=== PATIENT | female | born 1965 | race Caucasian/White ===

== ENCOUNTER 2017-01-14 21:01 | Inpatient (IN) | payer OTHER ==
[~2017-01-14] VITALS: Ht 160 cm; Wt 108.5 kg
[~2017-01-14 21:01] MED LIST: 1-ME1LIQ PO; CIPR250T2 PO; IOHEXOL 350 MG/ML 10 ML VIAL (for RAD DIAG) IVCONTRAST ONE; LISI2.5T55 PO; METO50TA PO; SERT-132 PO
[2017-01-14 21:06] VITALS: BP 199/85; PULSE 87; RESP 24; TEMP 98.1; O2SAT 94
[2017-01-14] MEDS ORDERED: MORPHINE SULFATE 4 MG/ML INJ IV PUSH ONE ×2 (21:15→23:30)
[2017-01-14] MEDS ORDERED: SODIUM CHLORIDE 0.9% FLUSH 10 ML FLUSH IVF PRN (21:15)
[2017-01-14] MEDS ORDERED: SODIUM CHLOR 0.9% 1000 ML INJ 1,000 ML IV SCH (21:15)
[2017-01-14] MEDS ORDERED: NITROGLYCERIN 2% OINT 1 GM PACKET TOPICAL ONE (21:15)
[2017-01-14] MEDS ORDERED: ONDANSETRON HCL 4 MG/2 ML VIAL IV PUSH ONE (21:15)
[2017-01-14 21:40] VITALS: BP 178/76; PULSE 80; O2SAT 94
--- NOTE | 2017-01-14 21:44 | RADRPT ---
EXAM DATE/TIME: 01/14/2017 21:22 [facility] COMPARISON: No previous studies available for comparison. INDICATIONS : Chest pain. MEDICAL HISTORY : Hypertension. SURGICAL HISTORY : Appendectomy. Tonsillectomy. ENCOUNTER: Initial ACUITY: 1 day PAIN SCORE: 7/10 LOCATION: Bilateral chest FINDINGS: A single view of the chest demonstrates the lungs to be symmetrically aerated without evidence of mas s, infiltrate or effusion. The cardiomediastinal contours are unremarkable. Osseous structures are intact. CONCLUSION: No evidence of acute cardiopulmonary disease. Elia Wyatt MD on January 14, 2017 at 21:43 Board Certified Radiologist. This report was verified electronically.
[2017-01-14 22:08] LABS: BASOPHIL # 0.2 TH/MM3 (0-0.2); BASOPHIL % 1.2 % (0.0-2.0); EOSINOPHIL # 0.2 TH/MM3 (0-0.4); EOSINOPHIL % 1.2 % (0.0-4.0); HEMATOCRIT 46.3 % (35.0-46.0); HEMO FLAGS DIFF FINAL; LYMPH % 23.9 % (9.0-44.0); LYMPHOCYTE # 3.1 TH/MM3 (1.0-4.8); MEAN CELL VOLUME 88.4 FL (80.0-100.0); MEAN CORPUSCULAR HGB CONC 33.9 % (32.0-36.0); MONO % 4.4 % (0.0-8.0); NEUT % 69.3 % (16.0-70.0); PLATELET COUNT 304 TH/MM3 (150-450); RED BLOOD COUNT 5.24 MIL/MM3 (4.00-5.30); RED CELL DISTRIBUTION WIDTH 13.8 % (11.6-17.2)
[2017-01-14 22:19] LABS: APTT (PATIENT) 25.7 SEC (24.3-30.1); INTERNATIONAL NORMALIZED RATIO 0.9 RATIO
[2017-01-14 22:31] VITALS: BP 167/78; PULSE 71; RESP 20; O2SAT 96
[2017-01-14 23:02] LABS: ALT (GPT) 30 U/L (10-53); ANION GAP 7 MEQ/L (5-15); AST (GOT) 23 U/L (15-37); BICARBONATE 27.2 MEQ/L (21.0-32.0); BLOOD UREA NITROGEN 19 MG/DL (7-18); CHLORIDE 106 MEQ/L (98-107); GLOMERULAR FILTRATION RATE 78 ML/MIN (>89); MAGNESIUM 2.2 MG/DL (1.5-2.5); SODIUM (NA) 140 MEQ/L (136-145)
[2017-01-14 23:20] LABS: ALKALINE PHOSPHATASE 94 U/L (45-117); TOTAL BILIRUBIN ADULT 0.3 MG/DL (0.2-1.0)
[2017-01-14 23:27] LABS: CREATINE KINASE 94 U/L (26-192)
[2017-01-14 23:48] VITALS: BP_SYST 129; BP_SYST 138; BP_DIAS 59; BP_DIAS 63; PULSE 72; RESP 20; O2SAT 97
[2017-01-15] VITALS (21 sets, daily range): BP systolic 123–159; BP diastolic 65–78; PULSE 60–74; RESP 16–22; TEMP 97.4–98.7; O2SAT 95–98
--- NOTE | 2017-01-15 00:34 | RADRPT ---
EXAM DATE/TIME: 01/15/2017 00:02 [facility] COMPARISON: No previous studies available for comparison. INDICATIONS : Chest pain with shortness of breath today. IV CONTRAST: 100 cc Omnipaque 350 (iohexol) IV RADIATION DOSE: 17.03 CTDIvol (mGy) MEDICAL HISTORY : Cardiovascular disease. Rheumatoid arthritis. Gastroesophageal reflux disease.Hypertension. Congestiv e heart failure. Fibromyalgia. SURGICAL HISTORY : Appendectomy. Hysterectomy.Cholecystectomy.Cardiac catherization. ENCOUNTER: Initial ACUITY: 1 day PAIN SCALE: 8/10 LOCATION: chest TECHNIQUE: Volumetric scanning was performed using a multi-row detector CT scanner. The data was post processed with a variety of visualization algorithms including full volume maximum intensity projection, multi -planar sliding thin slab reformation, curved planar reformation, and surface rendering techniques. Using automated exposure control and adjustment of the mA and/or kV according to patient size, radiat ion dose was kept as low as reasonably achievable to obtain optimal diagnostic quality images. DICOM format image data is available electronically for review and comparison. FINDINGS: LUNGS: There is no consolidation or pneumothorax. No concerning pulmonary nodule is visualized. No pleural fluid is present. MEDIASTINUM: No abnormally enlarged lymph nodes by CT criteria. No axillary or hilar abnormalities are identified. ABDOMEN: The liver and spleen are free of focal defects. The gallbladder and pancreas demonstrate no abnormali ty. The adrenal glands are normal. The kidneys demonstrate no evidence of solid renal mass or hydrone phrosis. No free fluid or abdominal masses are identified. No para-aortic adenopathy is seen. PELVIS: No evidence of free fluid or pelvic mass. No abnormally enlarged inguinal or retroperitoneal lymph no pb are present. The bladder is unremarkable. THORACIC AORTA: The thoracic aortic root is normal with normal branching of the great vessels. There is no evidence of aneurysm or dissection. ABDOMINAL AORTA: The aorta is normal in caliber without aneurysm or dissection. The renal arteries are patent bilater ally. The proximal celiac and superior mesenteric arteries are patent and normal in diameter. PELVIC VESSELS: The internal iliac and external iliac vessels are patent without aneurysm or stenosis. CONCLUSION: Mild atherosclerotic change in the thoracic and abdominal aorta. No dissection or aneurysm. Calcified granuloma left upper lobe and calcified left hilar lymph nodes. No acute findings. Simon Clarke MD on January 15, 2017 at 0:25 Board Certified Radiologist. This report was verified electronically.
[2017-01-15] MEDS ORDERED: HEPARIN-D5W 25,000 U/250 ML 250 ML IV PRN (01:30)
[2017-01-15] MEDS ORDERED: SODIUM CHLORIDE 0.9% FLUSH 10 ML FLUSH IV FLUSH PRN (01:30)
[2017-01-15] MEDS ORDERED: NALOXONE HCL 0.4 MG/ML AMP IV PUSH PRN ×2 (01:30→09:15)
[2017-01-15] MEDS ORDERED: SODIUM CHLORIDE 0.9% FLUSH 10 ML FLUSH IVF PRN (01:30)
[2017-01-15] MEDS ORDERED: HEPARIN SODIUM - IV 10,000 UNITS/10 ML VIAL IV PUSH ONE (01:30)
[2017-01-15] MEDS ORDERED: NITROGLYCERIN 0.4 MG SL 25 TABS/BTL SL PRN (01:30)
[2017-01-15] MEDS: MORPHINE SULFATE 4 MG/ML INJ IV PUSH PRN ×2 (02:48→07:28)
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
[2017-01-15 04:40] LABS: CREATINE KINASE 55 U/L (26-192)
[2017-01-15] MEDS ORDERED: HEPARIN SODIUM - IV 10,000 UNITS/10 ML VIAL IV PUSH PRN ×2 (07:30)
--- NOTE | 2017-01-15 08:12 | MB ---
cc: NAHUM TOVARN DATE OF CONSULTATION 01/15/2017 REASON FOR CONSULTATION "Unstable angina" HISTORY OF PRESENT ILLNESS History is obtained from the patient who is a fair historian. The patient is a 51-year-old white female with a history of hypertension, hyperlipidemia, tobacco abuse, fibromyalgia, "congestive heart failure" four years ago although at that time she only had pedal edema, history of "leaky valve" who presented to the hospital yesterday with chest pain. Yesterday morning while doing minimal activity, she developed fairly severe substernal chest discomfort with some radiation directly through to her back. Associated symptoms included shortness of breath without nausea or diaphoresis. The chest pain has persisted in a constant fashion until today (24 hours later). Because the chest discomfort intensity became severe around 07:00 p.m. last night, she finally came to the emergency room. The patient denies pleurisy, dizziness, syncope, near-syncope, palpitations, change in chronic intermittent pedal edema, paroxysmal nocturnal dyspnea. For the most part, she is sedentary. At the present time, she continues to have substernal chest discomfort although much improved compared to yesterday. PAST MEDICAL HISTORY As above. No other details available. PAST SURGICAL HISTORY 1. Hysterectomy 2. Tonsillectomy 3. Appendectomy MEDICATIONS AT HOME None ALLERGIES PENICILLIN FAMILY HISTORY The patient's father from myocardial infarction at age 48. The patient's mother is status post valve replacement. SOCIAL HISTORY The patient smokes about A half a pack of cigarettes per day. She denies alcohol or drug abuse. REVIEW OF SYSTEMS As in the history of present illness otherwise negative or noncontributory. She also denies headache, visual changes, unilateral weakness or numbness, abdominal pain, melena, dyspepsia, bright red blood per rectum. PHYSICAL EXAMINATION Her blood pressure 129/59 with a pulse of 72, respirations 20. GENERAL: She is a well-developed, well-nourished white female in no acute distress. HEENT: On examination, jugular venous pressure is hard to assess, it appears to be normal. Carotid pulses are 2+ bilaterally and without bruits. CHEST: Examination of the chest reveals clear lung woodruff. CARDIAC: On cardiac examination, she has a regular rhythm and rate with a grade 1/6 systolic murmur heard at the left upper sternal border. No gallop is audible. ABDOMEN: On abdominal examination, se has a soft, nontender abdomen. Bowel sounds are present. There is no definite hepatosplenomegaly. EXTREMITIES: Examination of extremities reveals no clubbing, cyanosis or edema. EKG shows sinus rhythm, nonspecific T-wave abnormality. Chest x-ray shows no acute disease. LABORATORY DATA Includes WBC 13.0, hemoglobin 15.7, platelets 304. Potassium 4.0, negative cardiac enzymes, BUN 19, creatinine 0.78, glucose 121. IMPRESSION Atypical symptoms for myocardial ischemia in this 51-year-old white female with a history of fibromyalgia, hypertension, hyperlipidemia, questionable congestive heart failure four years ago, "leaky valve." Despite constant chest discomfort for the past 24 hours, cardiac enzymes are negative for myocardial infarction. EKG shows nonspecific changes. Clinical suspicion for pulmonary embolism or aortic dissection is low. The patient does have risk factors for coronary disease including hypertension, hyperlipidemia, family history, tobacco abuse. The extent of her valvular disease is not entirely clear. She has never been told she needed valve surgery. RECOMMENDATIONS 1. Await her 2-D echo. 2. Check a Lexiscan nuclear stress test. Unless severe or large amount of ischemia are demonstrated, would recommend medical therapy. 3. We will follow up as needed for any abnormal findings on nuclear stress testing. MD GINETTE Vargas/NATASHA /7:44 AM /7:52 AM DARRON
--- NOTE | 2017-01-15 08:37 | RADRPT ---
EXAM DATE/TIME: 01/15/2017 07:26 [facility] COMPARISON: No previous studies available for comparison. INDICATIONS : Abdominal pain. MEDICAL HISTORY : Congestive heart failure. Angina. Hypertension. Arthritis. Fibromyalgia. Depression. SURGICAL HISTORY : Tonsillectomy. Appendectomy. Cholecystectomy. Cardiac cath. Hysterectomy. Right knee surgery. ENCOUNTER: Initial ACUITY: 1 day PAIN SCORE: 2/10 LOCATION: Bilateral upper quadrant MEASUREMENTS: LIVER: 18.4 cm length COMMON DUCT: 11 mm RIGHT KIDNEY: 11.7 x 4.7 x 5.7 cm LEFT KIDNEY: 11.6 x 6.4 x 6.8 cm SPLEEN: 10.0 cm length AORTA: 2.8cm maximal FINDINGS: LIVER: Mildly echogenic without ductal dilatation. COMMON DUCT: No intraluminal mass or stone visualized. GALLBLADDER: Sludge the obvious stone. PANCREAS: Limited by bowel gas. RIGHT KIDNEY: No hydronephrosis, stone or mass. LEFT KIDNEY: No hydronephrosis, stone or mass. SPLEEN: No focal lesion. AORTA: Non aneurysmal. IVC: Within normal limits. CONCLUSION: Mildly echogenic liver without ductal dilatation. Sludge gallbladder without obvious stones. Giovanni Nugent MD FACR on January 15, 2017 at 8:35 Board Certified Radiologist. This report was verified electronically.
[2017-01-15] MEDS ORDERED: SODIUM CHLORIDE 0.9% FLUSH 10 ML FLUSH IV FLUSH SCH (09:00)
[2017-01-15] MEDS: SODIUM CHLORIDE 0.9% FLUSH 10 ML FLUSH IV FLUSH SCH ×2 (09:00→20:53)
--- NOTE | 2017-01-15 09:01 | HHI.PR ---
Subjective Remarks Patient states that she has right arm shoulder pain radiating towards her right scapula and mid chest area. She denies any shortness of breath nausea vomiting. She states this happened after she ate toast yesterday morning. Objective Vitals Vital Signs Date Time Temp Pulse Resp B/P (MAP) Pulse Ox O2 Delivery O2 Flow Rate FiO2 01/15/17 07:18 61 01/15/17 07:18 97.4 65 19 123/72 (89) 95 01/15/17 06:00 60 01/15/17 05:00 64 01/15/17 04:00 62 01/15/17 03:45 97.5 69 16 128/65 (86) 95 01/15/17 01:49 97 Nasal Cannula 2.00 01/14/17 23:48 72 20 129/59 (82) 97 Room Air 138/63 (88) 01/14/17 22:37 Room Air 01/14/17 22:31 71 20 167/78 (107) 96 Room Air 01/14/17 21:40 80 178/76 (110) 94 Room Air 01/14/17 21:18 Room Air 01/14/17 21:18 Room Air 01/14/17 21:06 98.1 87 24 199/85 (123) 94 I/O 01/14/17 01/14/17 01/14/17 01/15/17 01/15/17 01/15/17 07:00 15:00 23:00 07:00 15:00 23:00 Intake Total 1000 ml Output Total 50 ml Balance 1000 ml -50 ml Intake IV Total 1000 ml Output Urine Total 50 ml Result Diagram: 01/14/17213201/14/172132 Imaging Last Impressions Abdomen Ultrasound 01/15/17 0000 Signed Impressions: Service Date/Time: Sunday, January 15, 2017 07:26 - CONCLUSION: Mildly echogenic liver without ductal dilatation. Sludge gallbladder without obvious stones. Giovanni Nugent MD FACR Chest X-Ray 01/14/172112 Signed Impressions: Service Date/Time: December 21:22 - CONCLUSION: No evidence of acute cardiopulmonary disease. Elia Wyatt MD Aorta CTA 01/14/17 0000 Signed Impressions: Service Date/Time: Sunday, January 15, 2017 00:02 - CONCLUSION: Mild atherosclerotic change in the thoracic and abdominal aorta. No dissection or aneurysm. Calcified granuloma left upper lobe and calcified left hilar lymph nodes. No acute findings. Simon Clarke MD Objective Remarks GENERAL: This is a well-nourished, well-developed patient, in no apparent distress. CARDIOVASCULAR: Regular rate and rhythm w RESPIRATORY: Clear to auscultation. Breath sounds equal bilaterally. No wheezes , rales, or rhonchi. GASTROINTESTINAL: Abdomen soft, minimal epigastric tenderness with no rebound or guarding, nondistended. Normal active bowel sounds MUSCULOSKELETAL: Extremities without clubbing, cyanosis, or edema. NEURO: Alert & Oriented x4 to person, place, time, situation. Moves all ext x4 A/P Assessment and Plan 51-year-old white female Chest pain with a history of leaky valve" in the past - cardiac enzymes are negative. Patient also has some atypical symptoms related to oral food intake and ultrasound of the abdomen show gallbladder sludge. At this time cardiology has been consulted and recommended further workup with 2-D echo and nuclear stress test. Hepatic function tests are within normal limits. Hypertension, essential -patient is currently taking any medications at home. We'll continue monitor blood pressure trends here. Start IV Lasix when necessary. Overnight blood pressure has improved. DVT prophylaxis - Lovenox. Charmaine Martinez MD Jan 15, 2017 09:01
[2017-01-15] MEDS ORDERED: ENALAPRILAT 1.25 MG/ML VIAL IV PUSH PRN (09:15)
[2017-01-15] MEDS ORDERED: ACETAMINOPHEN 325 MG TAB PO PRN (09:15)
[2017-01-15] MEDS ORDERED: ACETAMINOPHEN/HYDROcodone 325 MG/5 MG TAB PO PRN (09:15)
[2017-01-15] MEDS ORDERED: ALUMINUM/MAGNESIUM/SIMETH 30 ML CUP PO PRN (09:15)
[2017-01-15] MEDS: PANTOPRAZOLE SOD 40 MG DELAYED RELEASE TAB PO SCH (10:00)
--- NOTE | 2017-01-15 10:15 | EKG ---
Date Performed: 01/15/2017 Time Performed: 06:14:22 PTAGE: 51 years EKG: Sinus rhythm Anterolateral T wave changes are nonspecific Borderline ECG PREVIOUS TRACING : 01/14/2017 21.10 Compared to prior tracing no significant change DOCTOR: Juan R Reyna Interpretating Date/Time 01/15/2017 10:12:10
--- NOTE | 2017-01-15 10:17 | EKG ---
Date Performed: 01/14/2017 Time Performed: 21:10:12 PTAGE: 51 years EKG: Sinus rhythm NONSPECIFIC ST & T-WAVE ABNORMALITY BORDERLINE ECG NO PREVIOUS TRACING DOCTOR: Juan R Reyna Interpretating Date/Time 01/15/2017 10:12:46
[2017-01-15] MEDS ORDERED: REGADENOSON INJ 0.4 MG/5 ML SYR ONE (11:00)
--- NOTE | 2017-01-15 12:31 | ECHRPT ---
Indication: CHF CONCLUSIONS Normal left ventricular size. Wall thickness is normal. The left ventricular systolic function is hy perdynamic with an estimated ejection fraction in the range of 65-70%. Mitral annular calcification is present. Mild mitral valve regurgitation. There is mild tricuspid valve regurgitation. The estimated pulmonary arterial pressure is 26 mmHg. BP: 129 / 59 HR: 72 Rhythm: MEASUREMENTS (Male / Female) Normal Values Technical Quality: 2D ECHO LV Diastolic Diameter PLAX 4.0 cm 4.2 - 5.9 / 3.9 - 5.3 cm LV Systolic Diameter PLAX 3.2 cm IVS Diastolic Thickness 1.2 cm 0.6 - 1.0 / 0.6 - 0.9 cm LVPW Diastolic Thickness 0.7 cm 0.6 - 1.0 / 0.6 - 0.9 cm LV Relative Wall Thickness 0.5 RV Internal Dim ED PLAX 1.8 cm LA Systolic Diameter LX 3.5 cm 3.0 - 4.0 / 2.7 - 3.8 cm M-MODE Aortic Root Diameter MM 3.2 cm AV Cusp Separation MM 1.9 cm DOPPLER Mitral E Point Velocity 90.8 cm/s Mitral A Point Velocity 67.1 cm/s Mitral E to A Ratio 1.4 TR Peak Velocity 229.3 cm/s TR Peak Gradient 21.0 mmHg FINDINGS LEFT VENTRICLE Normal left ventricular size. Wall thickness is normal. The left ventricular systolic function is hy perdynamic with an estimated ejection fraction in the range of 65-70%. RIGHT VENTRICLE Normal right ventricular size and systolic function. LEFT ATRIUM The left atrial size is normal. RIGHT ATRIUM The right atrial size is normal. ATRIAL SEPTUM Normal atrial septal thickness without atrial level shunting by limited color doppler interrogation. AORTA The aortic root and proximal ascending aorta are normal in size on limited imaging. MITRAL VALVE Mitral annular calcification is present. Mild mitral valve regurgitation. AORTIC VALVE Trileaflet aortic valve. No aortic valve stenosis or regurgitation. TRICUSPID VALVE There is mild tricuspid valve regurgitation. The estimated pulmonary arterial pressure is 26 mmHg. PULMONARY VALVE The pulmonary valve is not well visualized. VESSELS The inferior vena cava is normal in size. PERICARDIUM No pericardial effusion. Chucho Thao MD (Electronically Signed) Final Date:15 January 2017 12:30
--- NOTE | 2017-01-15 12:44 | RADRPT ---
EXAM DATE/TIME: 01/15/2017 10:20 [facility] COMPARISON: No previous studies available for comparison. INDICATIONS : Chest pain for 2 days. Angina. Congestive heart failure. DOSE: 31.2 mCi Tc99m Myoview at stress. 10.1 mCi Tc99m Myoview at rest. 0.4 mg Lexiscan STRESS SYMPTOMS: Chest pain and dyspnea. EJECTION FRACTION: 61% MEDICAL HISTORY : Hypertension. SURGICAL HISTORY : Hysterectomy. Cholecystectomy. ENCOUNTER: Initial ACUITY: 2 days PAIN SCALE: 3/10 LOCATION: Midsternal chest TECHNIQUE: The patient underwent pharmacologic stress with infusion of prescribed dose. Continuous ECG tracing was monitored during stress. Gated SPECT imaging was performed after stress and conventional SPECT i maging was performed at rest. The examination was performed on a SPECT/CT scanner, both attenuation and non-corrected datasets were reviewed. FINDINGS: DISTRIBUTION: The maximum perfused segment at stress is in the anterior lateral wall followed by the inferior wall. PERFUSION STUDY: The pattern of perfusion at stress is within normal limits. GATED STUDY: There is intact wall motion and thickening without hypokinetic or dyskinetic segments. CONCLUSION: Negative for stress-induced ischemia. Ejection fraction 61%. RISK CATEGORY: Low (<1% Annual Mortality Rate) Giovanni Nugent MD FACR on January 15, 2017 at 12:39 Board Certified Radiologist. This report was verified electronically.
[2017-01-15] MEDS: ACETAMINOPHEN/HYDROcodone 325 MG/7.5 MG TAB PO PRN ×2 (13:08→20:51)
[2017-01-15 14:13] LABS: APTT (PATIENT) 29.6 SEC (24.3-30.1)
[2017-01-15 14:36] LABS: CREATINE KINASE 61 U/L (26-192)
[2017-01-15] MEDS ORDERED: AMLO10TA2 PO (23:17)
[2017-01-16] VITALS (17 sets, daily range): BP systolic 122–160; BP diastolic 65–81; PULSE 55–62; RESP 20–22; TEMP 97.7–98.3; O2SAT 92–96
[2017-01-16] MEDS: ACETAMINOPHEN/HYDROcodone 325 MG/7.5 MG TAB PO PRN ×2 (01:03→09:09)
[2017-01-16 06:11] LABS: AUTOMATED NEUTROPHIL # 4.8 TH/MM3 (1.8-7.7); BASOPHIL # 0.1 TH/MM3 (0-0.2); BASOPHIL % 0.6 % (0.0-2.0); EOSINOPHIL # 0.2 TH/MM3 (0-0.4); EOSINOPHIL % 2.5 % (0.0-4.0); HEMATOCRIT 39.8 % (35.0-46.0); HEMO FLAGS DIFF FINAL; LYMPH % 35.4 % (9.0-44.0); LYMPHOCYTE # 3.1 TH/MM3 (1.0-4.8); MEAN CELL VOLUME 88.8 FL (80.0-100.0); MEAN CORPUSCULAR HEMOGLOBIN 29.8 PG (27.0-34.0); MEAN CORPUSCULAR HGB CONC 33.6 % (32.0-36.0); MONO % 5.8 % (0.0-8.0); NEUT % 55.7 % (16.0-70.0); PLATELET COUNT 264 TH/MM3 (150-450); RED BLOOD COUNT 4.48 MIL/MM3 (4.00-5.30); RED CELL DISTRIBUTION WIDTH 13.8 % (11.6-17.2); WHITE BLOOD COUNT 8.7 TH/MM3 (4.0-11.0)
[2017-01-16 06:47] LABS: BICARBONATE 28.1 MEQ/L (21.0-32.0); POTASSIUM 3.9 MEQ/L (3.5-5.1)
[2017-01-16] MEDS ORDERED: HYDR-3516 PO (08:40)
[2017-01-16] MEDS ORDERED: PANT40TA3 PO (08:40)
[2017-01-16] MEDS: PANTOPRAZOLE SOD 40 MG DELAYED RELEASE TAB PO SCH (09:08)
[2017-01-16] MEDS: SODIUM CHLORIDE 0.9% FLUSH 10 ML FLUSH IV FLUSH SCH (09:09)
--- NOTE | 2017-01-16 11:45 | HHI.DCPOC ---
Discharge Care Plan Diagnosis: (1) Chest pain Goals to Promote Your Health * To prevent worsening of your condition and complications * To maintain your health at the optimal level Directions to Meet Your Goals Take your medications as prescribed Follow your dietary instruction Follow activity as directed Keep your appointments as scheduled Take your immunizations and boosters as scheduled If your symptoms worsen call your PCP, if no PCP go to Urgent Care Center or Emergency Room Smoking is Dangerous to Your Health. Avoid second hand smoke Call the 24-hour hour crisis hotline for domestic abuse at Kuldip Cabrera MD Jan 16, 2017 11:45
--- NOTE | 2017-01-16 11:46 | HHI.PR ---
Subjective Remarks Patient denies chest pain or shortness of breath. She recalls the pain seems to be associated with food. Nuclear stress tests unremarkable. Objective Vitals Vital Signs Date Time Temp Pulse Resp B/P (MAP) Pulse Ox O2 Delivery O2 Flow Rate FiO2 01/16/17 10:56 92 01/16/17 07:30 Room Air 2.00 01/16/17 07:30 98.2 58 21 136/65 (88) 94 01/16/17 07:00 57 01/16/17 06:00 60 01/16/17 05:00 57 01/16/17 04:17 Nasal Cannula 2.00 01/16/17 04:17 97.7 55 22 122/67 (85) 95 01/16/17 04:00 55 01/16/17 03:00 57 01/16/17 02:00 61 01/16/17 01:00 62 01/16/17 00:00 Nasal Cannula 2.00 01/16/17 00:00 61 01/16/17 00:00 98.0 61 22 160/81 (107) 96 01/15/17 23:00 65 01/15/17 22:00 69 01/15/17 21:00 67 01/15/17 20:02 98 Nasal Cannula 2.00 01/15/17 20:00 98.4 70 22 159/78 (105) 96 01/15/17 20:00 Nasal Cannula 2.00 01/15/17 20:00 70 01/15/17 18:27 69 01/15/17 17:45 74 01/15/17 16:32 65 01/15/17 15:53 98.7 69 18 142/74 (96) 95 01/15/17 15:16 60 01/15/17 14:09 73 01/15/17 13:08 97.6 69 18 142/74 (96) 95 01/15/17 13:00 72 I/O 01/15/17 01/15/17 01/15/17 01/16/17 01/16/17 01/16/17 07:00 15:00 23:00 07:00 15:00 23:00 Intake Total 138 ml 480 ml 480 ml Output Total 50 ml Balance -50 ml 138 ml 480 ml 480 ml Intake Oral 480 ml 480 ml IV Total 138 ml Output Urine Total 50 ml # Voids 3 3 # Bowel Movements 0 Result Diagram: 01/16/17 0527 01/16/17 0527 Imaging Last Impressions Myocardial Perfusion Scan Nuc Med 01/15/17 0000 Signed Impressions: Service Date/Time: Sunday, January 15, 2017 10:20 - CONCLUSION: Negative for stress-induced ischemia. Ejection fraction 61%%. RISK CATEGORY: Low (<1% % Annual Mortality Rate) Giovanni Nugent MD FACR Abdomen Ultrasound 01/15/17 0000 Signed Impressions: Service Date/Time: Sunday, January 15, 2017 07:26 - CONCLUSION: Mildly echogenic liver without ductal dilatation. Sludge gallbladder without obvious stones. Giovanni Nugent MD FACR Chest X-Ray 01/14/172112 Signed Impressions: Service Date/Time: December 21:22 - CONCLUSION: No evidence of acute cardiopulmonary disease. Elia Wyatt MD Aorta CTA 01/14/17 0000 Signed Impressions: Service Date/Time: Sunday, January 15, 2017 00:02 - CONCLUSION: Mild atherosclerotic change in the thoracic and abdominal aorta. No dissection or aneurysm. Calcified granuloma left upper lobe and calcified left hilar lymph nodes. No acute findings. Simon Clarke MD Objective Remarks GENERAL: This is a well-nourished, well-developed patient, in no apparent distress. CARDIOVASCULAR: Normal rate and regular rhythm without murmurs, gallops, or rubs. RESPIRATORY: Good respiratory efforts. Breath sounds equal and clear to auscultation bilaterally. GASTROINTESTINAL: Abdomen soft, non-tender, non-distended. Normal active bowel sounds MUSCULOSKELETAL: Extremities without cyanosis, or edema. NEURO: Alert & Oriented x4 to person, place, time, situation. Moves all ext x4 PSYCH: Appropriate mood and affect. A/P Assessment and Plan 51-year-old white female who presented to the hospital with chest pain. The patient reported a history of leaky valve and heart failure. She was evaluated by cardiology and underwent nuclear stress test which was unremarkable. 2-D echocardiogram showed preserved LVEF, mild tricuspid and mitral regurgitation. Patient chest pain related to food intake. She was started on Protonix with improvement of her symptoms. She may have esophageal spasm. I advised her to continue on Protonix and follow-up with her primary care physician for eventual GI referral. Hypertension, essential -continue amlodipine Discharge home in good condition Activity: Regular as tolerated Diet: Heart healthy Meds: Per med rec Follow-up with: PCP Kuldip Cabrera MD Jan 16, 2017 11:46
[2017-01-16] MEDS ORDERED: AMLO10TA2 PO (13:05)
--- NOTE | 2017-01-17 19:59 | PD ---
HPI Chief Complaint: Chest Pain Time Seen by Provider: 21:13 Travel History International Travel<30 days: No Contact w/Intl Traveler<30days: No Traveled to known affect area: No History of Present Illness HPI 51-year-old female presents to the emergency department for evaluation of chest pain. Patient presents by EMS transport. Patient states she's been having intermittent chest pain times one day. Patient has history of hypertension dyslipidemia tobaccoism fibromyalgia angina and she believes episode of congestive heart failure. Patient states that she has not seen a specialist in at least a year. Patient has not followed by primary care provider. Patient did have nitroglycerin at home and took 3 with symptom relief. En route to the hospital patient also had sublingual nitroglycerin with some relief but not complete resolution of pain. Patient does not report any nausea or vomiting or sweats. Patient has had some associated shortness of breath and radiation into her back. Patient denies any history of claudication no new lower extremity pain or swelling. No long distance travel protracted bedrest her surgical procedure. No history of PE or DVT. Patient has had no near-syncope or syncope. Patient denies fever or chills. Patient is unable to identify exacerbating factors and somewhat alleviating factors are moderate relief with nitroglycerin. PFSH Past Medical History Narrative Medical Arthritis CAD CHF hypertension tobaccoism: Nursing notes reviewed Arthritis: Yes (RA) Autoimmune Disease: Yes (fibromyalgia) Anxiety: No Depression: No Cardiac Catheterization: Yes Cardiovascular Problems: Yes (ANGINA) Chest Pain: Yes Congestive Heart Failure: Yes Diminished Hearing: No Fibromyalgia: Yes Gastrointestinal Disorders: Yes GERD: Yes Hypertension: Yes Tetanus Vaccination: < 5 Years Influenza Vaccination: Yes ?: Not Past Surgical History Abdominal Surgery: Yes (appendectomy) Appendectomy: Yes Cholecystectomy: Yes Gynecologic Surgery: Yes (historectomy) Hysterectomy: Yes Oral Surgery: Yes (tonslectomy) Tonsillectomy: Yes Social History Alcohol Use: Yes (on occasion) Tobacco Use: Yes (1 ppd) Substance Use: No Allergies-Medications (Allergen,Severity, Reaction): Coded Allergies: penicillin G (Unverified Allergy, Severe, Anaphylaxis, 01/14/17) Reported Meds & Prescriptions Reported Meds & Active Scripts Active Narrative Medication sublingual nitroglycerin Review of Systems Except as stated in HPI: all other systems reviewed are Neg General / Constitutional: No: Fever, Chills HENT: No: Congestion Cardiovascular: Positive: Chest Pain or Discomfort Respiratory: Positive: Shortness of Breath Gastrointestinal: No: Nausea, Vomiting, Abdominal Pain Genitourinary: No: Flank Pain Musculoskeletal: No: Myalgias, Arthralgias, Edema, Pain Skin: No Rash Neurologic: No: Weakness, Syncope Psychiatric: Positive: Anxiety Hematologic/Lymphatic: No: Lymph Node Enlargement Physical Exam Narrative GENERAL: Well-developed well-nourished obese female in no acute distress no respiratory distress SKIN: Warm and dry. HEAD: Normocephalic. EYES: No scleral icterus. No injection or drainage. NECK: Supple, trachea midline. No JVD or lymphadenopathy. CARDIOVASCULAR: Regular rate and rhythm without murmurs, gallops, or rubs. RESPIRATORY: Breath sounds equal bilaterally. No accessory muscle use. GASTROINTESTINAL: Abdomen soft, non-tender, nondistended. MUSCULOSKELETAL: No cyanosis, or edema. Radial and dorsalis pedis pulses 2+ to palpation BACK: Nontender without obvious deformity. No CVA tenderness. Data Data Last Documented VS Vital Signs Date Time Temp Pulse Resp B/P (MAP) Pulse Ox O2 Delivery O2 Flow Rate FiO2 01/14/17 23:48 72 20 129/59 (82) 97 Room Air 138/63 (88) 01/14/17 21:06 98.1 Orders Orders Electrocardiogram (01/14/17 21:13) Ckmb (Isoenzyme) Profile (01/14/17 21:13) Complete Blood Count With Diff (01/14/17 21:13) Comprehensive Metabolic Panel (01/14/17 21:13) Magnesium (Mg) (01/14/17 21:13) Prothrombin Time / Inr (Pt) (01/14/17 21:13) Act Partial Throm Time (Ptt) (01/14/17 21:13) Troponin I (01/14/17 21:13) Lipase (01/14/17 21:13) Chest, Single Ap (01/14/17 21:13) Ecg Monitoring (01/14/17 21:13) Bilateral Bp Monitoring (01/14/17 21:13) Iv Access Insert/Monitor (01/14/17 21:13) Oximetry (01/14/17 21:13) Oxygen Administration (01/14/17 21:13) Sodium Chloride 0.9% Flush (Ns Flush) (01/14/17 21:15) Nitroglycerin 2% Oint (Nitroglycerin 2% (01/14/17 21:15) Ondansetron Inj (Zofran Inj) (01/14/17 21:15) Morphine Inj (Morphine Inj) (01/14/17 21:15) Sodium Chlor 0.9% 1000 Ml Inj (Ns 1000 M (01/14/17 21:15) Morphine Inj (Morphine Inj) (01/14/17 23:30) Cta Thor Abd Aorta W Iv C W3d (01/14/17 ) Iohexol 350 Inj (Omnipaque 350 Inj) (01/14/17 00:12) Admit Order (Ed Use Only) (01/15/17 ) ^ Saline Lock (01/15/17 01:26) Resp Oxygen John C Titrat 1-4 L (01/15/17 ) Notify Dr: Other (01/15/17 01:26) Sodium Chloride 0.9% Flush (Ns Flush) (01/15/17 09:00) Sodium Chloride 0.9% Flush (Ns Flush) (01/15/17 01:30) Labs Laboratory Tests Test 01/14/17 21:33 White Blood Count 13.0 TH/MM3 Red Blood Count 5.24 MIL/MM3 Hemoglobin 15.7 GM/DL Hematocrit 46.3 % Mean Corpuscular Volume 88.4 FL Mean Corpuscular Hemoglobin 30.0 PG Mean Corpuscular Hemoglobin Concent 33.9 % Red Cell Distribution Width 13.8 % Platelet Count 304 TH/MM3 Mean Platelet Volume 8.3 FL Neutrophils (%) (Auto) 69.3 % Lymphocytes (%) (Auto) 23.9 % Monocytes (%) (Auto) 4.4 % Eosinophils (%) (Auto) 1.2 % Basophils (%) (Auto) 1.2 % Neutrophils # (Auto) 9.0 TH/MM3 Lymphocytes # (Auto) 3.1 TH/MM3 Monocytes # (Auto) 0.6 TH/MM3 Eosinophils # (Auto) 0.2 TH/MM3 Basophils # (Auto) 0.2 TH/MM3 CBC Comment DIFF FINAL Differential Comment Prothrombin Time 10.0 SEC Prothromb Time International Ratio 0.9 RATIO Activated Partial Thromboplast Time 25.7 SEC Blood Urea Nitrogen 19 MG/DL Creatinine 0.78 MG/DL Random Glucose 121 MG/DL Total Protein 7.8 GM/DL Albumin 3.9 GM/DL Calcium Level 9.3 MG/DL Magnesium Level 2.2 MG/DL Alkaline Phosphatase 94 U/L Aspartate Amino Transf (AST/SGOT) 23 U/L Alanine Aminotransferase (ALT/SGPT) 30 U/L Total Bilirubin 0.3 MG/DL Sodium Level 140 MEQ/L Potassium Level 4.0 MEQ/L Chloride Level 106 MEQ/L Carbon Dioxide Level 27.2 MEQ/L Anion Gap 7 MEQ/L Estimat Glomerular Filtration Rate 78 ML/MIN Total Creatine Kinase 94 U/L Troponin I LESS THAN 0.02 NG/ML B-Type Natriuretic Peptide 24 PG/ML Lipase 135 U/L MDM Medical Decision Making Medical Screen Exam Complete: Yes Emergency Medical Condition: Yes Medical Record Reviewed: Yes Interpretation(s) CTA thorax and abdomen no dissection or aneurysm per reading radiologist Dr. Clarke Chest x-ray no acute process per reading radiologist Dr. Clarke EKG sinus rhythm no acute ST elevation or injury pattern change noted nonspecific T wave changes CBC is automated differential mild leukocytosis 13,000 Metabolic panel grossly within normal range Upon and I less than 0.02, not elevated; CK 94, not elevated BNP: 24, not elevated Coreg urination studies within normal limits Differential Diagnosis Chest pain ACS DE atypical chest pain aortic dissection aneurysm PE pneumonia Narrative Course Patient placed on bus driver/monitor and pulse oximetry IV access obtained specimens collected and sent for resulting EKG performed which reveals no acute ST elevation or injury pattern; patient administered morphine sulfate 2 mg of some symptom relief Patient improved complains of recurrent pain therefore nitroglycerin paste applied to the chest wall Patient given additional dose of morphine sulfate Cardiac enzymes are found to be in normal range CT a thorax and abdomen reveals no acute dissection or aneurysm of the aorta sign patient's case discussed with on-call medicine for admission for chest pain discussed starting heparin in the emergency department admitting physician has decided they will or the heparin as part of her admission orders Physician Communication Physician Communication Case discussed with Kira RODARTE--for admission Diagnosis Primary Impression: Chest pain Patient Instructions: Hydrocodone/Acetaminophen (By mouth), Pantoprazole (By mouth), Chest Pain (DC) Scripts Amlodipine (Amlodipine) 10 Mg Tab 10 MG PO DAILY for Blood Pressure Management, #30 TAB 0 Refills Prov: Kuldip Cabrera MD 01/16/17 Pantoprazole (Pantoprazole) 40 Mg Tab 40 MG PO DAILY, #14 TAB Prov: Kuldip Cabrera MD 01/16/17 Hydrocodone-Acetaminophen (Hydrocodone-Acetaminophen) 5-325 mg Tab 1 TAB PO Q6HR Y for PAIN GREATER THAN 5, #10 TAB Prov: Kuldip Cabrera MD 01/16/17 Ita Garnica MD Jan 17, 2017 19:59
== END 2017-01-16 13:42 | disposition home or self-care (01) | DRG 313 ==
LOC: NEPC 21:01 → NEDA 01-15 01:28 → HCIS 01-15 03:00
PROVIDERS: ADMIT Family Medicine; ATTEND Family Medicine
DX: R07.9 Chest pain, unspecified (principal); I25.110 Atherosclerotic heart disease of native coronary artery with unstable angina pectoris; I11.0 Hypertensive heart disease with heart failure; I50.9 Heart failure, unspecified; E78.5 Hyperlipidemia, unspecified; I08.1 Rheumatic disorders of both mitral and tricuspid valves; J44.9 Chronic obstructive pulmonary disease, unspecified; K21.9 Gastro-esophageal reflux disease without esophagitis; M79.7 Fibromyalgia; M19.90 Unspecified osteoarthritis, unspecified site; F17.210 Nicotine dependence, cigarettes, uncomplicated; F41.1 Generalized anxiety disorder; Z91.14 Patient's other noncompliance with medication regimen; Z95.2 Presence of prosthetic heart valve
CPT/HCPCS: 71010; 71275; 74174; 76700; 78452; 80048; 80053; 82550; 83690; 83735; 83880; 84484; 85025; 85610; 85730; 93005; 93017; 93306; 96361; 96374; 96375; 96376; A9502; J1644; J2270; J2405; J2785; J7030; Q9967